=== PATIENT | female | born 1950 | race Caucasian/White ===

== ENCOUNTER → 2017-07-09 | Outpatient (CLI) | payer OTHER, MEDICARE | LOC: BRMIMAGING 17:07 | PROVIDERS: ATTEND Internal Medicine Rheumatology | DX: M18.12 Unilateral primary osteoarthritis of first carpometacarpal joint, left hand (principal); M19.041 Primary osteoarthritis, right hand; M19.042 Primary osteoarthritis, left hand | CPT/HCPCS: 73120-PO ==